=== PATIENT | male | born 1955 | race American Indian/Alaskan Native ===

== ENCOUNTER 2022-11-16 14:27 | Observation (INO) | payer SELFPAY ==
[2022-11-16] MEDS ORDERED: SODIUM CHLORIDE 0.9% 500 ML INFUS.BAG IV ONE (16:04)
[2022-11-16 17:12] LABS: BASO % 0.9 % (0-2.0); EOS % 3.1 % (0-4.5); HEMATOCRIT 46.8 % (35.4-49); HEMOGLOBIN 16.6 GM/dL (11.7-16.9); LYMPH % 30.8 % (8-40); MCH 30.2 pg (25.7-33.7); MCHC 35.4 g/dl (32.0-35.9); MEAN CELL VOLUME 85.4 fl (80-96); MEAN PLT VOLUME 8.2 fl (7.5-11.1); MONO % 5.2 % (3.8-10.2); PLATELET COUNT 229 10^3/uL (134-434); RBC 5.48 M/mm3 (4.00-5.60); RDW 13.9 % (11.9-15.9)
[2022-11-16 17:16] LABS: VENOUS BASE EXCESS 0.4 mmol/L (-2-2); VENOUS O2 SATURATION 35.1 % (70-80); VENOUS PCO2 53.8 mmHg (38-52); VENOUS PH 7.329 (7.310-7.410)
[2022-11-16 17:38] LABS: POTASSIUM 4.2 mmol/L (3.5-5.1)
[2022-11-16 17:40] LABS: CALCIUM 9.4 mg/dL (8.5-10.1)
[2022-11-16 17:41] LABS: ALBUMIN 3.7 g/dl (3.4-5.0); BLOOD UREA NITROGEN 19.5 mg/dL (7-18); MAGNESIUM 2.3 mg/dL (1.8-2.4)
[2022-11-16 17:44] LABS: CREATININE 1.1 mg/dL (0.55-1.3)
[2022-11-16 17:45] LABS: BILIRUBIN,TOTAL 0.5 mg/dL (0.2-1)
[2022-11-16 17:46] LABS: TOT PROT 7.8 g/dl (6.4-8.2)
[2022-11-16 18:33] LABS: EPI CELLS 9 /uL (0-25.1); HYALINE CASTS 0 /uL (0-3.1); PH,URINE 6.5 (5.0-8.0); URINE APPEARANCE CLEAR; URINE BACTERIA 103 /uL (0-1359); URINE BILIRUBIN NEGATIVE (NEGATIVE); URINE COLOR YELLOW; URINE GLUCOSE (UA) 3+ (NEGATIVE); URINE KETONE NEGATIVE (NEGATIVE); URINE LEUK ESTERASE NEGATIVE (NEGATIVE); URINE NITRITE NEGATIVE (NEGATIVE); URINE PROTEIN 2+ (NEGATIVE); URINE RBC 17 /uL (0-23.9); URINE UROBILINOGEN 0.2 mg/dL (0.2-1.0)
[2022-11-16 19:27] LABS: URINE WBC 57.8 /uL (0-25.8)
[2022-11-16] MEDS: INSULIN SLIDING SCALE (NOVOLOG) 1 VIAL SQ SCH (22:15)
[2022-11-17] MEDS: INSULIN SLIDING SCALE (NOVOLOG) 1 VIAL SQ SCH ×4 (06:07→23:49)
[2022-11-17 08:58] LABS: EOS % 3.7 % (0-4.5); HEMATOCRIT 45.5 % (35.4-49); HEMOGLOBIN 15.7 GM/dL (11.7-16.9); LYMPH % 33.7 % (8-40); MCH 29.9 pg (25.7-33.7); MCHC 34.5 g/dl (32.0-35.9); MEAN CELL VOLUME 86.6 fl (80-96); MEAN PLT VOLUME 8.7 fl (7.5-11.1); MONO % 6.2 % (3.8-10.2); NEUT % 55.4 % (42.8-82.8); PLATELET COUNT 225 10^3/uL (134-434); RBC 5.26 M/mm3 (4.00-5.60); RDW 13.6 % (11.9-15.9); WHITE BLOOD COUNT 7.9 K/mm3 (4.0-10.0)
[2022-11-17 09:13] LABS: POTASSIUM 3.7 mmol/L (3.5-5.1)
[2022-11-17 09:15] LABS: BLOOD UREA NITROGEN 15.6 mg/dL (7-18); CALCIUM 8.7 mg/dL (8.5-10.1)
[2022-11-17 09:18] LABS: CREATININE 0.9 mg/dL (0.55-1.3)
[2022-11-17] MEDS ORDERED: sitaGLIPtin PHOSPHATE 50 MG TABLET PO ONE (11:24)
[2022-11-17] MEDS ORDERED: metFORMIN HCL 500 MG TABLET (FP) PO ONE (11:24)
[2022-11-17] MEDS: metFORMIN HCL 500 MG TABLET (FP) PO SCH (17:54)
[2022-11-17] MEDS ORDERED: GABAPENTIN 100 MG CAPSULE PO SCH (22:00)
[2022-11-18] MEDS: metFORMIN HCL 500 MG TABLET (FP) PO SCH (06:24)
[2022-11-18] MEDS: INSULIN SLIDING SCALE (NOVOLOG) 1 VIAL SQ SCH ×2 (06:29→12:37)
[2022-11-18] MEDS ORDERED: sitaGLIPtin PHOSPHATE 50 MG TABLET PO SCH (07:00)
[2022-11-18] MEDS ORDERED: INSULIN (LEVEMIR) 100 UNITS/ML UNITS SQ ONE (10:45)
[2022-11-18 11:24] VITALS: BP 147/77; PULSE 86; RESP 16; TEMP 97.9
[2022-11-18 15:21] VITALS: BMI 21.1
== END 2022-11-18 14:44 | disposition home or self-care (01) ==
LOC: JER 14:27 → JERBED 19:38 → J5S 21:35
PROVIDERS: ADMIT Internal Medicine; ATTEND Internal Medicine
PROC: 3E013VG Introduction of Insulin into Subcutaneous Tissue, Percutaneous Approach (ICD-10-PCS; principal; 2022-11-16)
PROC: 3E0337Z Introduction of Electrolytic and Water Balance Substance into Peripheral Vein, Percutaneous Approach (ICD-10-PCS; 2022-11-16)
DX: E11.65 Type 2 diabetes mellitus with hyperglycemia (principal); E11.40 Type 2 diabetes mellitus with diabetic neuropathy, unspecified; R53.1 Weakness; R35.0 Frequency of micturition; M79.672 Pain in left foot; M79.671 Pain in right foot; F17.210 Nicotine dependence, cigarettes, uncomplicated
CPT/HCPCS: 36415; 80048; 80053; 81003; 82010; 82803; 82962; 83036; 83735; 85025; 87086; 97116-GP; 97161-GP; 99285-25; G0378